=== PATIENT | male | born 1950 | race Caucasian/White ===

== ENCOUNTER 2017-02-25 23:25 | Emergency (ER) | payer OTHER ==
--- NOTE | 2017-02-25 23:31 | PDOC ---
History of Present Illness - General Chief Complaint: Pain Stated Complaint: GOUT RT HAND Time Seen by Provider: 02/25/17 23:31 History Source: Patient Exam Limitations: No Limitations - History of Present Illness Initial Comments: 02/25/17 23:37 This is a 59-year-old male with history of gout in the past who comes in complaining of a gouty flareup in his right hand. Patient has had history of similar flareups in the past. Patient denies any trauma or injury. Patient denies any fevers or chills. Patient said the pain is similar to when he does have a gouty flare in the past. Patient does not have any medications for his gout. Patient is otherwise healthy. PAST MEDICAL HISTORY: no significant history PAST SURGICAL HISTORY: no significant history FAMILY HISTORY: no pertinant history SOCIAL HISTORY: Pt lives with family and is employed. MEDICATIONS: reviewed ALLERGIES: As per nursing notes Review of Systems General: No fevers or chills, no weakness, no weight loss HEENT: No change in vision. No sore throat,. No ear pain CardioVascular: No chest pain or shortness of breath Respiratory:No cough, or wheezing. Gastrointestinal: no nausea, vomitting, diarrhea or constipation, No rectal bleeding Genitourinary: No dysuria, hematuria, or frequency Musculoskeletal: Right hand pain as per history of present illness Neurologic: No headache, vertigo, dizziness or loss of consciousness Psychiatric: nor depression Skin: No rashes or easy bruising Endocrine: no increased thirst or abnormal weight change Allergic: no skin or latex allergy All other systems reviewed and normal GENERAL: The patient is awake, alert, and fully oriented, in no acute distress. HEAD: Normal with no signs of trauma. EYES: Pupils equal, round and reactive to light, extraocular movements intact, sclera anicteric, conjunctiva clear. EXTREMITIES: Normal range of motion, no edema. Right hand: There is some erythema and tenderness over the third MCP joint of the right hand. There is no ecchymosis or evidence of trauma. There is no cuts or lesions to the area. NEUROLOGICAL: Normal speech, normal gait. grossly intact PSYCH: Normal mood, normal affect. SKIN: Warm, Dry, normal turgor, no rashes or lesions noted. Assessment and plan: This is a 67-year-old male with an acute gouty flareup. Patient given Toradol in the emergency room and a prescription for Indocin was sent to his pharmacy. Patient discharged and told to follow-up with his doctor next week Past History - Past Medical History Allergies/Adverse Reactions: Allergies Allergy/AdvReac Type Severity Reaction Status Date / Time No Known Allergies Allergy Verified 08/21/14 18:32 Home Medications: Ambulatory Orders Indomethacin [Indocin -] 50 mg PO TID #21 capsule 02/25/17 Naproxen Sodium [Aleve] 440 mg PO ONCE 02/25/17 - Suicide/Smoking/Psychosocial Hx Smoking History: Current every day smoker Have you smoked in the past 12 months: Yes Number of Cigarettes Smoked Daily: 20 'Breaking Loose' booklet given: 08/21/14 Hx Alcohol Use: No Substance Use Type: None *DC/Admit/Observation/Transfer Diagnosis at time of Disposition: Gout Qualifiers: Gout site: hand Gout etiology: unspecified cause Chronicity: acute Laterality: right Qualified Code(s): M10.9 - Gout, unspecified - Discharge Dispostion Disposition: HOME Condition at time of disposition: Stable Admit: No - Referrals - Patient Instructions Printed Discharge Instructions: DI for Gout Additional Instructions: Get the prescription filled for Indocin and take one tablet 3 times a day until the pain is resolved. If he still has significant pain next week follow-up with your primary care doctor. Return to the emergency department immediately with ANY new, persistent or worsening symptoms. Continue any medications as previously prescribed by your physician. You should follow up with your primary doctor as soon as possible regarding today's emergency department visit. . Please make sure your doctor reviews the results of your emergency evaluation. Thank you for coming to the Emergency Department today for your care. It was a pleasure to see you today. Please note that your evaluation is INCOMPLETE until you follow-up with your doctor. - Post Discharge Activity
[2017-02-25 23:33] VITALS: BP 157/82; PULSE 88; TEMP 97.6; BMI 28.7
[2017-02-25] MEDS ORDERED: KETOROLAC TROMETHAMINE 60 MG/2 ML VIAL IM ONE (23:36)
[2017-02-25] MEDS ORDERED: KETOROLAC TROMETHAMINE 60 MG/2 ML VIAL ONE (23:37)
== END 2017-02-25 23:46 | disposition home or self-care (01) ==
LOC: FER 23:25
PROC: 3E0233Z Introduction of Anti-inflammatory into Muscle, Percutaneous Approach (ICD-10-PCS; principal; 2017-02-25)
DX: M10.9 Gout, unspecified (principal); F17.210 Nicotine dependence, cigarettes, uncomplicated
CPT/HCPCS: 99282-25

== ENCOUNTER 2018-08-30 20:58 | Emergency (ER) | payer OTHER ==
--- NOTE | 2018-08-30 21:00 | PDOC ---
History of Present Illness - History of Present Illness Initial Comments: Mr. Poole is a 68M with extensive smoking hx, presenting today with left sided chest pain that started around 7pm today. Reports that the pain is throbbing in nature. Reports that the chest pain is worse on inspiration. Denies HTN, HLD, DM. Mother has a pacemaker but no other family hx of cardiac disease. Pain does not radiate but reports left neck pain as well. Reports LUE numbness. Reports that the pain has been worsening. Denies cough, denies fever, denies fall, denies recent illness. No leg swelling. <Yonas Maradiaga - Last Filed: 08/30/18 22:16> <Nara Staton - Last Filed: 08/30/18 23:38> - General Chief Complaint: Chest Pain Stated Complaint: CHEST PAIN Time Seen by Provider: 08/30/18 21:00 Past History - Past Medical History COPD: No - Surgical History Abdominal Surgery: Yes (COLON RESECTION) - Suicide/Smoking/Psychosocial Hx Smoking History: Current every day smoker Have you smoked in the past 12 months: Yes Number of Cigarettes Smoked Daily: 20 'Breaking Loose' booklet given: 08/21/14 Hx Alcohol Use: No Substance Use Type: None <Yonas Maradiaga - Last Filed: 08/30/18 22:16> <Nara Staton - Last Filed: 08/30/18 23:38> - Past Medical History Allergies/Adverse Reactions: Allergies Allergy/AdvReac Type Severity Reaction Status Date / Time No Known Allergies Allergy Verified 08/30/18 21:02 Home Medications: Ambulatory Orders Pantoprazole Sodium [Protonix -] 40 mg PO DAILY #20 tablet.ec 08/30/18 Review of Systems - Review of Systems Comments:: ROS GENERAL/CONSTITUTIONAL: No fever or chills. No weakness._ HEAD, EYES, EARS, NOSE AND THROAT: No change in vision. No ear pain or discharge. No sore throat. Reports left sided neck pain. CARDIOVASCULAR: Reports chest pain and shortness of breath RESPIRATORY: Denies cough, hemoptysis_ GASTROINTESTINAL: No nausea, vomiting, diarrhea or constipation._ GENITOURINARY: No dysuria, frequency, or change in urination._ MUSCULOSKELETAL: No joint or muscle swelling or pain. No neck or back pain._ SKIN: No rash_ NEUROLOGIC: No headache, vertigo, loss of consciousness, or change in strength/ sensation._ ENDOCRINE: No increased thirst. No abnormal weight change_ HEMATOLOGIC/LYMPHATIC: No anemia, easy bleeding, or history of blood clots._ ALLERGIC/IMMUNOLOGIC: No hives or skin allergy._ <Yonas Maradiaga - Last Filed: 08/30/18 22:16> *Physical Exam - Physical Exam Comments: GENERAL: Awake, alert, and oriented to person/place/time, in no acute distress_ HEAD: No signs of trauma, normocephalic, atraumatic _ EYES: PERRLA, EOMI, sclera anicteric, conjunctiva clear_ ENT: Hearing grossly normal, nares patent, oropharynx clear without exudates. No uvular deviation. Moist mucosa_ NECK: Normal ROM, supple, no lymphadenopathy, JVD, or masses_ LUNGS: No distress, speaks in full sentences, clear to auscultation bilaterally _ CHEST: No reproducible tenderness on palpation on the chest wall. HEART: Regular rate and rhythm, normal S1 and S2, no murmurs appreciated, peripheral pulses normal and equal bilaterally._ ABDOMEN: Soft, nontender, normoactive bowel sounds. No guarding, no rebound. No masses_ EXTREMITIES: Normal inspection, Normal range of motion, no edema. No clubbing or cyanosis_ NEUROLOGICAL: Cranial nerves II through XII grossly intact. Normal speech, normal gait, no focal sensorimotor deficits _ SKIN: Warm, Dry, normal turgor, no rashes or lesions noted_ <Yonas Maradiaga - Last Filed: 08/30/18 22:16> - Vital Signs Last Vital Signs Temp Pulse Resp BP Pulse Ox 97.8 F 90 17 107/79 97 08/30/18 21:06 08/30/18 22:20 08/30/18 22:20 08/30/18 22:20 08/30/18 21:06 <Nara Staton - Last Filed: 08/30/18 23:38> ED Treatment Course - LABORATORY CBC & Chemistry Diagram: 08/30/18 21:15 08/30/18 21:15 <Yonas Maradiaga - Last Filed: 08/30/18 22:16> - LABORATORY CBC & Chemistry Diagram: 08/30/18 21:15 08/30/18 21:15 - ADDITIONAL ORDERS Additional order review: Laboratory Results 08/30/18 08/30/18 08/30/18 21:15 21:15 21:15 Sodium 141 Potassium 3.6 Chloride 105 Carbon Dioxide 29 Anion Gap 7 L BUN 16.0 Creatinine 0.9 Est GFR (CKD-EPI)AfAm 100.65 Est GFR (CKD-EPI)NonAf 86.84 Random Glucose 97 Calcium 9.2 Total Bilirubin 0.8 AST 19 ALT 21 Alkaline Phosphatase 74 Creatine Kinase 81 Cancelled Troponin I < 0.03 Cancelled Total Protein 7.8 Albumin 4.2 08/30/18 21:15 RBC 4.88 MCV 96.9 H MCHC 33.7 RDW 13.8 MPV 9.3 Neutrophils % 56.7 Lymphocytes % 34.6 Monocytes % 6.0 Eosinophils % 1.9 Basophils % 0.8 - RADIOLOGY Radiology Studies Ordered: Category Date Time Status CHEST CTA [CT] Stat CT Scan 08/30/18 21:56 Taken - Medications Given in the ED: ED Medications Discontinued Medications Generic Name Dose Route Start Last Admin Trade Name Yesenia PRN Reason Stop Dose Admin Al Hydroxide/Mg Hydroxide 30 ml 08/30/18 22:16 08/30/18 22:20 Mylanta Oral Suspension - PO 08/30/18 22:17 30 ml ONCE ONE Administration Hyoscyamine Sulfate 0.125 mg 08/30/18 22:16 08/30/18 22:19 Levsin Odt - PO 08/30/18 22:17 0.125 mg ONCE ONE Administration Famotidine/Sodium Chloride 20 mg in 50 mls @ 100 mls/hr 08/30/18 21:42 21:44 Pepcid 20 Mg Premixed Ivpb - IVPB 08/30/18 22:11 100 mls/hr ONCE ONE Administration <Nara Staton - Last Filed: 08/30/18 23:38> Medical Decision Making - Medical Decision Making 08/30/18 21:00 68M with 50 pack year smoking hx presenting with left sided chest pain that started at 1900 today. Pain is not reproducible. Never had before. Risk factors include smoking hx. No DM, HLD, family hx of ACS. Does not have hx of HTN, but BP is elevated at bedside 187/99. DDx includes ACS vs reflux vs costochondritis vs musculoskeletal chest pain. Will obtain CBC, CMP, CXR, EKG, troponin and reassess. 08/30/18 22:08 Troponin wnl. CXR shows no cardiomegaly, no rib fracture. Mediastinum appears similar to CXR done in 2006. 08/30/18 22:16 Pt signed out to Dr. Staton. <Yonas Maradiaga - Last Filed: 08/30/18 22:16> *DC/Admit/Observation/Transfer <Yonas Maradiaga - Last Filed: 08/30/18 22:16> <Nara Staton - Last Filed: 08/30/18 23:38> Diagnosis at time of Disposition: Atypical chest pain, GERD with esophagitis - Discharge Dispostion Disposition: HOME Condition at time of disposition: Stable - Prescriptions Prescriptions: Pantoprazole Sodium [Protonix -] 40 mg PO DAILY #20 tablet.ec - Patient Instructions Printed Discharge Instructions: GERD Diet, DI for Gastroesophageal Reflux Disease (GERD) Additional Instructions: Elevate upper body/head on extra pillow tonight Protonix 40 mg daily / mylanta as needed Avoid foods that worsen reflux as discussed See your doctor tomorrow as planned Return to ER if pain recurs or if you have nausea/vomiting/shortness of breath
[2018-08-30 21:18] VITALS: TEMP 97.8; BMI 26.9
[2018-08-30 21:26] LABS: BASO % 0.8 % (0-2.0); EOS % 1.9 % (0-4.5); HEMATOCRIT 47.3 % (35.4-49); HEMOGLOBIN 15.9 GM/dl (11.7-16.9); LYMPH % 34.6 % (8-40); MCH 32.6 pg (25.7-33.7); MCHC 33.7 g/dl (32.0-35.9); MEAN CELL VOLUME 96.9 fl (80-96); MEAN PLT VOLUME 9.3 fl (7.5-11.1); NEUT % 56.7 % (42.8-82.8); PLATELET COUNT 215 K/MM3 (134-434); RBC 4.88 M/mm3 (4.00-5.60); RDW 13.8 % (11.9-15.9); WHITE BLOOD COUNT 9.7 K/mm3 (4.0-10.8)
[2018-08-30] MEDS ORDERED: FAMOTIDINE 20 MG/50 ML IVPB 20 MG/50 ML MG IVPB ONE ×2 (21:37→21:42)
[2018-08-30 21:39] LABS: ALBUMIN 4.2 g/dl (3.4-5.0); BILIRUBIN,TOTAL 0.8 mg/dl (0.2-1); CALCIUM 9.2 mg/dl (8.5-10); CREATININE 0.9 mg/dl (0.55-1.3); POTASSIUM 3.6 mmol/L (3.5-5.1); TOT PROT 7.8 g/dl (6.4-8.2)
[2018-08-30] MEDS ORDERED: HYOSCYAMINE SULFATE 0.125 MG *ODT PO ONE (22:16)
[2018-08-30] MEDS ORDERED: MAG HYDROX/AL HYDROX/SIMETH 30 ML UNIT-DOSE CUP PO ONE (22:16)
[2018-08-30] MEDS ORDERED: HYOSCYAMINE SULFATE 0.125 MG *ODT ONE (22:17)
[2018-08-30] MEDS ORDERED: MAG HYDROX/AL HYDROX/SIMETH 30 ML UNIT-DOSE CUP ONE (22:18)
[2018-08-30 22:21] VITALS: BP 107/79; PULSE 90
--- NOTE | 2018-08-31 02:09 | PDOC ---
Documentation entered by Suzanne Hassan SCRIBE, acting as scribe for Nara Staton MD. Nara Staton MD: This documentation has been prepared by the Sonya carvalho Brenda, SCRIBE, under my direction and personally reviewed by me in its entirety. I confirm that the documentation accurately reflects all work, treatment, procedures, and medical decision making performed by me. Attending Attestation - Resident Resident Name: Yonas Maradiaga - ED Attending Attestation I have performed the following: I have examined & evaluated the patient, The case was reviewed & discussed with the resident, I agree w/resident's findings & plan - HPI HPI: 08/30/18 21:58 The patient is a 68 year old male, with a significant PMH of gout and hepatitis C, who presents to the emergency department with a sudden onset of left-sided chest pain, today around 7:00pm immediately after eating a sandwich containing sauerkraut and pastrami, that has gotten progressively worse. As per patient, the chest pain is aggravated by deep inspiration and is nonradiating, but he does endorse left neck pain and some left upper extremity numbness. The patient denies cough, shortness of breath, headache and dizziness. Denies fever, chills, nausea, vomiting, diarrhea and constipation. Denies dysuria, frequency, urgency and hematuria. Allergies: NKA Past surgical history: colon resection (2006) Social history: tobacco user (1.5 packs of cigarettes/day) Family History: Mother has a pacemaker. PCP: Not reported 08/30/18 22:26 - Physicial Exam PE: 08/30/18 21:58 GENERAL: Awake, alert, and fully oriented, in no acute distress HEAD: No signs of trauma EYES: PERRLA, EOMI, sclera anicteric, conjunctiva clear ENT: Auricles normal inspection, hearing grossly normal. Moist mucosa NECK: Normal ROM, supple. LUNGS: Breath sounds equal, clear to auscultation bilaterally. No wheezes, and no crackles HEART: Regular rate and rhythm, normal S1 and S2, no murmurs, rubs or gallops ABDOMEN: Soft, nontender, normoactive bowel sounds. No guarding, no rebound. No masses EXTREMITIES: Normal range of motion, no edema. No clubbing or cyanosis. No cords, erythema, or tenderness NEUROLOGICAL: Cranial nerves II through XII grossly intact. Normal speech, normal gait SKIN: Warm, Dry, normal turgor, no rashes or lesions noted. Twelve-lead electrocardiogram is performed and interpreted by me: Normal sinus rhythm 93/bpm, there is left axis deviation but intervals and waveforms are normal. No evidence of acute ST or T-wave abnormalities. No evidence of acute cardiac arrhythmia. - Medical Decision Making Workup for midsternal chest pain instituted with CBC/chemistry profile/troponin sent. Portable chest x-ray performed: No acute pathology; unchanged from previous chest x-ray 2015 Laboratory evaluation essentially normal without elevation of troponin and no acute abnormalities in CBC or chemistry profile. Because of the persistent pleuritic nature of the patient's pain, CT angiogram performed to evaluate for pulmonary embolism. Preliminary reading of CTA by Imaging salesperson neckties: Timing of contrast less than optimal but no evidence of pulmonary embolism or other acute pathology. Patient received Pepcid 20 mg IV and Mylanta 30 ml PO/LevsinODT 0.125SL After receiving the above medications, patient had total resolution of his pain , including any pain with deep breathing. He states that he has very mild residual "soreness" of the epigastric area. Clinical presentation most consistent with gastroesophageal reflux with acute esophagitis Patient will be discharged with strong recommendation of follow-up with his doctor within the next 24 hours. Prescription for Protonix 40 mg daily sent to his pharmacy. Meanwhile, we will keep his head elevated with extra pillows overnight, be extremely cautious with his diet regarding foods that are conducive to gastroesophageal reflux and return to the ER if he has any recurrent persistent pain Heart Score/ECG Review - History History: Slightly suspicious - Electrocardiogram EKG: Normal - Age Age: >/= 65 - Risk Factors Risk Factors Heart Score: Yes Smoking History Based on the list above the patient has:: 1-2 risk factors - Troponin Troponin: </= normal limit - Score Heart Score - Total: 3
--- NOTE | 2018-08-31 12:01 | EKG ---
Test Reason : Blood Pressure : / mmHG Vent. Rate : 093 BPM Atrial Rate : 093 BPM P-R Int : 182 ms QRS Dur : 106 ms QT Int : 370 ms P-R-T Axes : 066 -81 049 degrees QTc Int : 460 ms NORMAL SINUS RHYTHM LEFT AXIS DEVIATION ABNORMAL ECG WHEN COMPARED WITH ECG OF 28-AUG-2005 08:24, QRS AXIS SHIFTED LEFT Confirmed by WENCESLAO ALMARAZ MD ([id number]) on 08/31/2018 12:01:05 PM Referred By: Confirmed By:WENCESLAO ALMARAZ MD
== END 2018-08-30 23:45 | disposition home or self-care (01) ==
LOC: FER 20:58
PROC: 3E033GC Introduction of Other Therapeutic Substance into Peripheral Vein, Percutaneous Approach (ICD-10-PCS; principal; 2018-08-30)
DX: F17.210 Nicotine dependence, cigarettes, uncomplicated (principal); R07.89 Other chest pain; K21.9 Gastro-esophageal reflux disease without esophagitis
CPT/HCPCS: 36415; 71045-TC-FY; 71275-TC; 80053; 82550; 84484; 85025; 93005; 99283-25

== ENCOUNTER 2019-12-28 04:29 | Day surgery (SDC) | payer OTHER ==
[2019-12-27 14:52] VITALS: BMI 28.7
[2019-12-28] MEDS ORDERED: LIDOCAINE HCL 1%, 10 MG/ML (20ML VIAL) ONE (12:55)
[2019-12-28] MEDS ORDERED: oxyCODONE HCL 5 MG TABLET PO PRN (14:13)
[2019-12-28] MEDS ORDERED: ONDANSETRON 4 MG/2 ML VIAL IVPUSH PRN (14:13)
[2019-12-28] MEDS ORDERED: LACTATED RINGERS SOLUTION 1,000 ML IV SCH (14:15)
[2019-12-28] MEDS ORDERED: MIDAZOLAM HCL 2 MG/2 ML SINGLE DOSE VIAL ONE (14:18)
[2019-12-28] MEDS ORDERED: PROPOFOL 20 ML ONE ×2 (14:18)
[2019-12-28] MEDS ORDERED: SUCCINYLCHOLINE CHLORIDE 200 MG/10 ML SYRINGE ONE (14:18)
[2019-12-28] MEDS ORDERED: GLYCOPYRROLATE 0.2 MG/1 ML VIAL ONE (14:18)
[2019-12-28] MEDS ORDERED: ACETAMINOPHEN 1000 MG/100 ML VIAL (NON FORMULARY) IVPB ONE (15:01)
[2019-12-28] MEDS ORDERED: ceFAZolin SODIUM 1 GM VIAL IVPB ONE (15:10)
[2019-12-28] MEDS ORDERED: DEXTROSE 5%-0.45% SALINE 1,000 ML IV SCH (15:15)
[2019-12-28] MEDS ORDERED: IBUPROFEN 800 MG/8 ML IJ IVPB SCH (15:15)
[2019-12-28] MEDS ORDERED: LIDOCAINE HCL 1%, 10 MG/ML (20ML VIAL) NR ONE (15:24)
[2019-12-28] MEDS ORDERED: BUPIVACAINE HCL/PF 0.5% (5 MG/ML) 30 ML VIAL IJ ONE (15:24)
[2019-12-28] MEDS ORDERED: EPHEDRINE SULFATE/0.9% NACL/PF 50 MG/10 ML SYRINGE NR ONE (15:39)
[2019-12-28] MEDS ORDERED: oxyCODONE HCL 5 MG TABLET ONE (16:47)
[2019-12-28] MEDS ORDERED: ACETAMINOPHEN INJECTION 100 ML IVPB ONE (16:47)
[2019-12-28 18:39] VITALS: BP 140/68; PULSE 76; TEMP 97
== END 2019-12-28 18:15 | disposition home or self-care (01) ==
LOC: JASU-SURG 04:29
PROVIDERS: ATTEND Urology
PROC: 0VB70ZZ Excision of Left Tunica Vaginalis, Open Approach (ICD-10-PCS; principal; 2019-12-28 14:00)
DX: N43.2 Other hydrocele (principal)
CPT/HCPCS: 88304-TC; 94760; J0131

== ENCOUNTER → 2020-06-28 | Emergency (ER) | payer BC, OTHER ==
[2020-06-28 10:37] VITALS: TEMP 97.8; BMI 28.7
[2020-06-28 11:03] LABS: EOS % 1.7 % (0-4.5); HEMATOCRIT 46.7 % (35.4-49); HEMOGLOBIN 15.6 GM/dl (11.7-16.9); MCH 32.4 pg (25.7-33.7); MCHC 33.4 g/dl (32.0-35.9); MEAN PLT VOLUME 8.3 fl (7.5-11.1); MONO % 6.7 % (3.8-10.2); NEUT % 50.6 % (42.8-82.8); PLATELET COUNT 212 K/MM3 (134-434); RBC 4.82 M/mm3 (4.00-5.60); RDW 14.1 % (11.9-15.9); WHITE BLOOD COUNT 7.7 K/mm3 (4.0-10.8)
[2020-06-28 11:34] LABS: ALBUMIN 3.8 g/dl (3.4-5.0); BILIRUBIN,TOTAL 0.6 mg/dl (0.2-1); CALCIUM 8.9 mg/dl (8.5-10); CREATININE 0.9 mg/dl (0.55-1.3); TOT PROT 6.9 g/dl (6.4-8.2)
[2020-06-28 11:56] VITALS: BP 153/83; PULSE 79
== END | disposition home or self-care (01) ==
LOC: FER 10:25
DX: F17.210 Nicotine dependence, cigarettes, uncomplicated (principal); F10.10 Alcohol abuse, uncomplicated; I10 Essential (primary) hypertension
CPT/HCPCS: 36415; 80053; 85025; 93005; 99284-25